=== PATIENT | male | born 1985 | race African-American/Black ===

== ENCOUNTER 2022-02-22 10:59 | Emergency (ER) | payer OTHER ==
[~2022-02-22] VITALS: Ht 182.9 cm; Wt 97.0 kg
[2022-02-22] MEDS ORDERED: IBUPROFEN 400MG TABLET PO ONE (12:00)
[2022-02-22 15:50] VITALS: BP 128/76
== END 2022-02-22 15:51 | disposition home or self-care (01) ==
LOC: ER 10:59
DX: B34.9 Viral infection, unspecified (principal); Z20.822 Contact with and (suspected) exposure to COVID-19
CPT/HCPCS: 71045; 87070; 87426; 87430; 87804; 99284